=== PATIENT | male | born 1945 | race Two or more races ===

== ENCOUNTER 2022-11-29 07:58 | Outpatient (CLI) | payer OTHER | END 2022-11-29 08:06 | disposition home or self-care (01) | LOC: TOM 07:58 | PROVIDERS: ATTEND Internal Medicine Gastroenterology | DX: R19.5 Other fecal abnormalities (principal); D50.9 Iron deficiency anemia, unspecified; Z12.11 Encounter for screening for malignant neoplasm of colon; K56.609 Unspecified intestinal obstruction, unspecified as to partial versus complete obstruction ==

== ENCOUNTER 2023-03-30 15:52 | Inpatient (IN) | payer OTHER ==
[~2023-03-30] VITALS: Ht 167.6 cm; Wt 68.0 kg
[2023-03-31] MEDS ORDERED: ATORVASTATIN CA40 MG PO (13:27)
[2023-03-31] MEDS ORDERED: GLUMETZA500 MG PO (13:27)
[2023-03-31] MEDS ORDERED: PLAVIX75 MG PO (13:27)
[2023-03-31] MEDS ORDERED: NAMENDA10 MG PO (13:28)
[2023-03-31] MEDS ORDERED: ARICEPT10 MG PO (13:28)
[2023-03-31] MEDS ORDERED: PEPCID AC20 MG PO (13:29)
[2023-03-31] MEDS ORDERED: TAMSULOSIN HCL0.4 MG PO (13:29)
[2023-03-31] MEDS ORDERED: FINESTERIDE PO (13:29)
[2023-03-31] MEDS ORDERED: ALENDRONATE SOD70 MG PO (13:30)
[2023-03-31] MEDS ORDERED: B-COMPLEX1 EACH PO (13:30)
[2023-03-31] MEDS ORDERED: FOLIC AC PO (13:31)
[2023-04-05] MEDS ORDERED: VITAMIN D3250 MCG (08:07)
[2023-04-05] MEDS ORDERED: FINASTERIDE5 MG (08:07)
[2023-04-05] MEDS ORDERED: VITAMIN B-121000 MCG (08:08)
[2023-04-05] MEDS ORDERED: FERROUS SULFAT325 M2 (08:08)
[2023-04-05] MEDS ORDERED: FOLIC ACID0.8 MG (08:08)
== END 2023-04-09 15:27 | disposition home or self-care (01) | DRG 331 ==
LOC: SURH 04-05 05:15 → O/R 04-05 05:15 → SURH 04-05 08:45
PROVIDERS: ADMIT Colon & Rectal Surgery; ATTEND Colon & Rectal Surgery
PROC: 07BC4ZX Excision of Pelvis Lymphatic, Percutaneous Endoscopic Approach, Diagnostic (ICD-10-PCS; 2023-04-05)
PROC: 0DTF4ZZ Resection of Right Large Intestine, Percutaneous Endoscopic Approach (ICD-10-PCS; principal; 2023-04-05 17:45)
DX: C18.0 Malignant neoplasm of cecum (principal)